=== PATIENT | female | born 1960 | race African-American/Black ===

== ENCOUNTER 2019-09-29 20:07 | Inpatient (IN) ==
[2019-09-29] MEDS ORDERED: ASPIRIN 325 MG TABLET PO STA (20:39)
[2019-09-29 21:01] LABS: Basophils # 0.1 10*3/uL (0.0-0.2); Basophils % 0.4 % (0.0-0.8); Eosinophils # 0.2 10*3/uL (0.0-0.87); Eosinophils % 1.9 % (0.00-10.9); Hematocrit 44.3 VOL% (35.7-47.0); Hemoglobin 14.5 GM/DL (12.0-16.0); Immature Granulocytes % 0.2 %; Immature Granulocytes Absolute 0.03 #; Lymphocytes # 4.2 10*3/uL (1.4-4.0); Lymphocytes % 32.9 % (21.3-54.2); Mean Corpuscular HGB Conc 32.7 GM/DL (32-36); Mean Platelet Volume 10.9 FL (9.6-12.0); Monocytes % 5.5 % (1.7-12.7); Neutrophils % 59.1 % (38.7-73.9); Platelet Count 207 T/CUMM (130-400); Red Blood Count 5.75 MC/CUMM (3.8-5.5); Red Cell Distribution Width 15.5 % (9.3-17.3); White Blood Count 12.7 T/CUMM (4-12)
[2019-09-29 21:55] LABS: Albumin 3.6 G/DL (3.4-5.0); Bilirubin,Total 0.5 MG/DL (0.2-1.0); Calcium 9.4 MG/DL (8.5-10.1); Osmolality,Calculated 279.5 MOS/KG (273-304); Total Protein 7.7 G/DL (6.4-8.3)
[2019-09-29] MEDS ORDERED: hydrALAZINE 20 MG/1 ML VIAL IV STA (22:35)
[2019-09-29] MEDS ORDERED: DEXTROSE 50% 25 GM/50 ML VIAL IV PRN (22:50)
[2019-09-29] MEDS ORDERED: PROMETHAZINE 25 MG TABLET PO PRN (22:50)
[2019-09-29] MEDS ORDERED: MORPHINE 4 MG/1 ML VIAL IV PRN (22:50)
[2019-09-29] MEDS ORDERED: GLUCAGON 1 MG VIAL IM PRN (22:50)
[2019-09-29] MEDS ORDERED: hydrALAZINE 20 MG/1 ML VIAL IV PRN (22:50)
[2019-09-29] MEDS ORDERED: ZALEPLON 5 MG CAPSULE PO PRN (22:50)
[2019-09-29] MEDS ORDERED: diphenhydrAMINE CAP 25 MG CAPSULE PO PRN (22:50)
[2019-09-29] MEDS ORDERED: ACETAMINOPHEN 325 MG TABLET PO PRN (22:50)
[2019-09-29] MEDS ORDERED: ONDANSETRON 4 MG/2 ML VIAL IV PRN (22:50)
[2019-09-29] MEDS ORDERED: guaiFENesin/DM ER 600-30 MG TABLET PO PRN (22:50)
[2019-09-29] MEDS ORDERED: DOCUSATE SODIUM 100 MG CAPSULE PO PRN (22:50)
[2019-09-29] MEDS ORDERED: NITROGLYCERIN SL 0.4 MG TABLET SL PRN (22:57)
[2019-09-29] MEDS ORDERED: carvediloL 3.125 MG TABLET PO SCH (23:00)
[2019-09-29] MEDS ORDERED: CLOPIDOGREL 300 MG TABLET PO ONE (23:30)
[2019-09-29] MEDS ORDERED: FUROSEMIDE 20 MG/2 ML VIAL IV ONE (23:30)
[2019-09-29] MEDS ORDERED: ENOXAPARIN 60 MG/0.6 ML SYRINGE SUBCUT SCH (23:30)
[2019-09-30] MEDS ORDERED: ATORVASTATIN 20 MG TABLET PO SCH (01:30)
[2019-09-30 02:18] LABS: Basophils # 0.1 10*3/uL (0.0-0.2); Basophils % 0.4 % (0.0-0.8); Eosinophils # 0.3 10*3/uL (0.0-0.87); Eosinophils % 2.2 % (0.00-10.9); Hematocrit 45.1 VOL% (35.7-47.0); Hemoglobin 14.9 GM/DL (12.0-16.0); Immature Granulocytes % 0.2 %; Immature Granulocytes Absolute 0.03 #; Lymphocytes # 4.8 10*3/uL (1.4-4.0); Lymphocytes % 37.1 % (21.3-54.2); Mean Corpuscular Volume 76.4 FL (87-102); Mean Platelet Volume 10.5 FL (9.6-12.0); Monocytes % 6.1 % (1.7-12.7); Platelet Count 209 T/CUMM (130-400); Red Cell Distribution Width 15.6 % (9.3-17.3)
[2019-09-30 03:04] LABS: Risk Ratio 2.69; VLDL CHOLESTEROL 20.4 MG/DL
[2019-09-30 03:15] LABS: Calcium 9.3 MG/DL (8.5-10.1); Osmolality,Calculated 278.4 MOS/KG (273-304)
[2019-09-30 03:20] LABS: Hypochromasia Slight; Platelet Estimate Normal
[2019-09-30] MEDS ORDERED: FUROSEMIDE 20 MG/2 ML VIAL IV SCH (08:00)
[2019-09-30] MEDS ORDERED: POTASSIUM CHLORIDE 20 MEQ TABLET PO ONE (08:11)
[2019-09-30] MEDS ORDERED: ASPIRIN 325 MG TABLET PO SCH (09:00)
[2019-09-30] MEDS ORDERED: amLODIPine 5 MG TABLET PO SCH (09:00)
[2019-09-30] MEDS ORDERED: CHLORTHALIDONE 25 MG TABLET PO SCH (09:00)
[2019-09-30] MEDS ORDERED: CLOPIDOGREL 75 MG TABLET PO SCH (09:00)
[2019-09-30] MEDS ORDERED: lisinopriL 20 MG TABLET PO SCH (09:00)
[2019-09-30] MEDS ORDERED: ISOSORBIDE MONONITRATE 30 MG TABLET PO SCH (09:00)
[2019-09-30] MEDS ORDERED: NICOTINE 21 MG/24 HR PATCH TRANSDERM SCH (09:00)
[2019-09-30] MEDS ORDERED: SPIRONOLACTONE 25 MG TABLET PO SCH (09:00)
[2019-09-30] MEDS ORDERED: ASPIRIN EC 81 MG TABLET PO SCH (09:00)
[2019-09-30] MEDS ORDERED: PANTOPRAZOLE 40 MG TABLET PO SCH (09:00)
[2019-09-30 12:24] LABS: Apearance,Urine CLEAR (Clear); Bilirubin,Urine Negative (Negative); Blood, Urine Negative (Negative); Glucose,Urine (UA) Negative (Negative); Hyaline Casts,Urine 4 /LPF (0-3); Ketones,Urine Negative (Negative); Mucus,Urine Occasional /LPF (Occasional); Nitrite,Urine Negative (Negative); Protein,Urine Negative; Squamous Epithelial Cell,Urine Occasional /HPF (0-10); Urine Color Yellow (Yellow); Urine Urobilinogen < 2.0 EU/DL (0.2-1.0)
[2019-09-30 13:34] VITALS: BP 157/79
== END 2019-09-30 15:27 | disposition home or self-care (01) | DRG 280 ==
LOC: N.ED 20:07 → N.EDINP 22:50 → N.TELEN 09-30 00:55
PROVIDERS: ADMIT Internal Medicine; ATTEND Internal Medicine